=== PATIENT | female | born 1995 | race Two or more races ===

== ENCOUNTER 2021-05-15 04:15 | Inpatient (IN) | payer OTHER ==
[~2021-05-15] VITALS: Ht 165.1 cm; Wt 81.6 kg
[2021-05-15] MEDS ORDERED: IRON325 MG PO (04:27)
[2021-05-15] MEDS ORDERED: PRENATAL TABLE1 EAC1 PO (04:27)
== END 2021-05-17 14:44 | disposition home or self-care (01) | DRG 807 ==
LOC: OB/GYN 04:15 → LDR 04:15 → OB/GYN 11:31
PROVIDERS: ADMIT Specialist; ATTEND Specialist
PROC: 10E0XZZ Delivery of Products of Conception, External Approach (ICD-10-PCS; principal; 2021-05-15)
PROC: 0KQM0ZZ Repair Perineum Muscle, Open Approach (ICD-10-PCS; 2021-05-15)
PROC: 4A1HXFZ Monitoring of Products of Conception, Cardiac Rhythm, External Approach (ICD-10-PCS; 2021-05-15)
DX: O70.1 Second degree perineal laceration during delivery (principal); Z37.0 Single live birth; Z3A.39 39 weeks gestation of pregnancy

== ENCOUNTER 2022-04-25 14:43 | Emergency (ER) | payer OTHER ==
[~2022-04-25] VITALS: Ht 170.2 cm; Wt 61.2 kg
[~2022-04-25 14:43] MED LIST: IRON325 MG PO; PRENATAL TABLE1 EAC1 PO
== END 2022-04-25 19:08 | disposition home or self-care (01) ==
LOC: ER 14:43
DX: B34.9 Viral infection, unspecified (principal); N39.0 Urinary tract infection, site not specified; Z20.822 Contact with and (suspected) exposure to COVID-19

== ENCOUNTER 2022-11-28 10:13 | Emergency (ER) | payer OTHER ==
[~2022-11-28] VITALS: Ht 165.1 cm; Wt 68.9 kg
[2022-11-28] MEDS ORDERED: ZITHROMAX500 MG PO (12:46)
[2022-11-28] MEDS ORDERED: TUSNEL LIQUID178 ML PO (12:46)
== END 2022-11-28 12:50 | disposition home or self-care (01) ==
LOC: ER 10:13
DX: U07.1 COVID-19 (principal); R07.0 Pain in throat; Z88.6 Allergy status to analgesic agent; Z88.9 Allergy status to unspecified drugs, medicaments and biological substances

== ENCOUNTER 2023-01-13 21:09 | Emergency (ER) | payer OTHER ==
[~2023-01-13] VITALS: Ht 165.1 cm; Wt 68.9 kg
[~2023-01-13 21:09] MED LIST changes: +TUSNEL LIQUID178 ML PO; +ZITHROMAX500 MG PO
== END 2023-01-14 03:29 | disposition home or self-care (01) ==
LOC: ER 21:09
PROVIDERS: General Practice
DX: K30 Functional dyspepsia (principal); Z20.822 Contact with and (suspected) exposure to COVID-19; Z88.8 Allergy status to other drugs, medicaments and biological substances
CPT/HCPCS: 36415; 96365; 96372; 99283; J2405; J3490

== ENCOUNTER → 2023-03-30 | Emergency (ER) | payer OTHER ==
[~2023-03-30] VITALS: Ht 165.1 cm; Wt 65.8 kg
[2023-03-30 10:45] LABS: PH,URINE 6.5 (5.0-8.0); URINE APPEARANCE Cloudy; URINE BILIRRUBIN Negative (NEGATIVE); URINE COLOR Yellow; URINE GLUCOSE Negative (NEGATIVE); URINE LEUKOCYTE Moderate; URINE NITRATE Negative; URINE PROTEIN Negative (NEGATIVE)
[2023-03-30 10:47] LABS: URINE BACTERIA 1632.9 uL (0.0-1933); URINE EPITHELIAL CELLS 33.3 uL (0.0-38.8); URINE RBC 27.7 uL (0.0-20.8); URINE WBC 725.1 uL (0.0-23.2)
[2023-03-30 10:53] LABS: URINE BLOOD TRACE
== END | disposition home or self-care (01) ==
LOC: ER 10:07
PROVIDERS: General Practice
DX: N39.0 Urinary tract infection, site not specified (principal); Z88.8 Allergy status to other drugs, medicaments and biological substances

== ENCOUNTER 2023-06-04 16:51 | Emergency (ER) | payer OTHER ==
[~2023-06-04] VITALS: Ht 165.1 cm; Wt 73.0 kg
== END 2023-06-04 19:55 | disposition home or self-care (01) ==
LOC: ER 16:52
DX: J06.9 Acute upper respiratory infection, unspecified (principal); Z20.822 Contact with and (suspected) exposure to COVID-19; Z88.8 Allergy status to other drugs, medicaments and biological substances

== ENCOUNTER 2024-01-05 19:19 | Emergency (ER) | payer OTHER ==
[~2024-01-05] VITALS: Ht 165.1 cm; Wt 79.4 kg
== END 2024-01-05 21:31 | disposition home or self-care (01) ==
LOC: ER 19:20
DX: B34.9 Viral infection, unspecified (principal); R53.81 Other malaise; Z20.822 Contact with and (suspected) exposure to COVID-19; Z88.6 Allergy status to analgesic agent

== ENCOUNTER 2024-06-21 19:55 | Emergency (ER) | payer OTHER ==
[~2024-06-21] VITALS: Ht 165.1 cm; Wt 78.0 kg
== END 2024-06-21 22:10 | disposition home or self-care (01) ==
LOC: ER 19:57
DX: M54.89 Other dorsalgia (principal); Z88.8 Allergy status to other drugs, medicaments and biological substances

== ENCOUNTER 2025-03-17 08:39 | Emergency (ER) | payer OTHER ==
[~2025-03-17] VITALS: Ht 165.1 cm; Wt 81.6 kg
[~2025-03-17 08:39] MED LIST changes: +BENADRYL ALLERG25 MG PO; +MEDROLPACK PO; +ZYNCOF 20-400120 ML PO
[2025-03-17 10:46] LABS: BASO % 0.2 % (0.1-1.2); EOS # 0.04 (0.04-0.54); EOS % 0.8 % (0.7-7.0); LYMPH # 0.90 (1.18-3.74); LYMPH % 17.0 % (19.3-53.1); MEAN PLATELET VOLUME 9.40 fl (9.4-12.4); MONO # 0.31 (0.24-0.82); MONO % 5.8 % (4.7-12.5); NEUT # 4.03 (1.56-6.13); NEUT % 76.0 % (34.0-71.1); RED CELL DISTRIBUTION WIDTH 12.7 % (11.6-14.4)
[2025-03-17 11:04] LABS: COVID-19 AG NEGATIVE (NEGATIVE)
[2025-03-17] MEDS ORDERED: PEPCID AC20 MG PO (14:31)
== END 2025-03-17 14:45 | disposition home or self-care (01) ==
LOC: ER 08:40
PROVIDERS: General Practice
DX: B34.9 Viral infection, unspecified (principal); Q78.0 Osteogenesis imperfecta; K29.70 Gastritis, unspecified, without bleeding; Z88.8 Allergy status to other drugs, medicaments and biological substances; Z20.822 Contact with and (suspected) exposure to COVID-19